=== PATIENT | female | born 1995 ===

== ENCOUNTER 2018-07-12 21:32 | Emergency (ER) | payer MEDICAID ==
[2018-07-12 21:46] VITALS: RESP 18
[2018-07-12] MEDS ORDERED: Sodium Chloride 0.9% 1,000 ML IV STA (21:55)
[2018-07-12 22:30] LABS: SQUAMOUS EPITHIAL 12 /hpf (0-5); URINE BACTERIA RARE (<OCC); URINE BILIRUBIN NEGATIVE (NEGATIVE); URINE BLOOD SMALL (NEGATIVE); URINE CLARITY CLOUDY (Clear); URINE COLOR YELLOW (YELLOW); URINE GLUCOSE (UA) NEG (NEGATIVE); URINE LEUKOCYTE ESTERASE TRACE Leu/uL (Negative); URINE PROTEIN 30 mg/dL (NEGATIVE)
[2018-07-12 22:38] LABS: ALB/GLOB RATIO 1.4 (1.0-2.1); ALBUMIN 4.2 g/dL (3.5-5.0); ALT/SGPT 16 U/L (9-52); AST/SGOT 17 U/L (14-36); BLOOD UREA NITROGEN 9 mg/dl (7-17); CALCIUM 9.3 mg/dL (8.4-10.2); GFR NON-AFRICAN AMERICAN > 60; LIPASE 101 U/L (23-300)
[2018-07-12 22:54] LABS: BASO % 0.5 % (0.0-2.0); EOS # 0.1 K/uL (0.0-0.7); EOS % 1.4 % (0.0-4.0); HEMOGLOBIN 13.4 g/dL (12.0-16.0); LYMPH % 29.7 % (20.0-40.0); MEAN CELL VOLUME 95.8 fl (81.0-99.0); MEAN CORPUSCULAR HEMOGLOBIN 32.9 pg (27.0-31.0); MEAN CORPUSCULAR HGB CONC 34.3 g/dL (33.0-37.0); MEAN PLATELET VOLUME 9.2 fl (7.2-11.7); MONO # 1.3 K/uL (0.0-0.8); MONO % 19.1 % (0.0-10.0); NEUT # 3.3 K/uL (1.8-7.0); NEUT % 49.3 % (50.0-75.0); RBC 4.07 Mil/uL (3.80-5.20); RED CELL DISTRIBUTION WIDTH 12.4 % (11.5-14.5); WHITE BLOOD COUNT 6.7 K/uL (4.8-10.8)
--- NOTE | 2018-07-12 23:09 | ED PDOC ---
HPI: Abdomen Time Seen by Provider: 07/12/18 21:50 Chief Complaint (Nursing): GI Problem Chief Complaint (Provider): GI Problem History Per: Patient History/Exam Limitations: no limitations Onset/Duration Of Symptoms: Hrs (x 3) Current Symptoms Are (Timing): Still Present Quality Of Discomfort: "Pain" Associated Symptoms: Nausea, Vomiting Additional Complaint(s): 23 year old female presents to the ED for evaluation of nausea and vomiting for the last three hours. Patient reports mild abdominal discomfort for two days. Tonight, she developed severe nausea and vomiting, prompting ED visit. States that she vomited a large amount of non bloody, non bilious vomit and continues to report epigastric pain. Denies fever and diarrhea. PMD: Dr. Aguirre Past Medical History Reviewed: Historical Data, Nursing Documentation, Vital Signs Vital Signs: Last Vital Signs Temp 98.0 F 07/12/18 21:45 Pulse 98 H 07/12/18 21:45 Resp 18 07/12/18 21:45 BP 112/73 07/12/18 21:45 Pulse Ox 100 07/12/18 21:45 - Medical History PMH: No Chronic Diseases - Surgical History Surgical History: No Surg Hx - Family History Family History: States: Unknown Family Hx - Social History Current smoker - smoking cessation education provided: No Alcohol: None Drugs: Denies - Immunization History Hx Tetanus Toxoid Vaccination: No Hx Influenza Vaccination: No Hx Pneumococcal Vaccination: No - Home Medications Home Medications: Ambulatory Orders Medication Instructions Recorded Esomeprazole Magnesium [Nexium] 20 mg PO QAM #14 ecc 07/13/18 Ondansetron ODT [Zofran ODT] 4 mg PO Q6 PRN #8 odt 07/13/18 - Allergies Allergies/Adverse Reactions: Allergies Allergy/AdvReac Type Severity Reaction Status Date / Time No Known Allergies Allergy Verified 07/12/18 21:45 Review of Systems ROS Statement: Except As Marked, All Systems Reviewed And Found Negative Constitutional: Negative for: Fever, Chills Gastrointestinal: Positive for: Nausea, Vomiting, Abdominal Pain (discomfort). Negative for: Diarrhea Physical Exam - Reviewed Nursing Documentation Reviewed: Yes Vital Signs Reviewed: Yes - Physical Exam Appears: Positive for: Uncomfortable Head Exam: Positive for: ATRAUMATIC, NORMAL INSPECTION, NORMOCEPHALIC Skin: Positive for: Normal Color, Warm, Dry. Negative for: Rash Eye Exam: Positive for: EOMI, Normal appearance, PERRL Neck: Positive for: Normal, Painless ROM, Supple Cardiovascular/Chest: Positive for: Regular Rate, Rhythm. Negative for: Murmur Respiratory: Positive for: Normal Breath Sounds. Negative for: Respiratory Distress Gastrointestinal/Abdominal: Positive for: Soft, Tenderness (epigastric tenderness). Negative for: Mass, Guarding, Rebound Back: Positive for: Normal Inspection. Negative for: L CVA Tenderness, R CVA Tenderness Extremity: Positive for: Normal ROM (x 4). Negative for: Deformity Neurological/Psych: Positive for: Awake, Alert, Normal Tone, Oriented. Negative for: Motor/Sensory Deficits - Laboratory Results Result Diagrams: 07/12/18 22:04 07/12/18 22: Lab Results: Total Bilirubin 0.3 mg/dl (0.2-1.3) 07/12/18 22: AST 17 U/L (14-36) 07/12/18 22: ALT 16 U/L (9-52) 07/12/18 22: Alkaline Phosphatase 63 U/L (38-126) 07/12/18 22: Total Protein 7.2 G/DL (6.3-8.2) 07/12/18 22: Albumin 4.2 g/dL (3.5-5.0) 07/12/18 22: Globulin 3.1 gm/dL (2.2-3.9) 07/12/18 22: Albumin/Globulin Ratio 1.4 (1.0-2.1) 07/12/18 22: Lipase 101 U/L (23-300) 07/12/18 22:04 Urine Color Yellow (YELLOW) 07/12/18 22:04 Urine Clarity Cloudy (Clear) 07/12/18 22: Urine pH 5.0 (5.0-8.0) 07/12/18 22: Ur Specific Newborn 1.025 (1.003-1.030) 07/12/18 22: Urine Protein 30 mg/dL (NEGATIVE) 07/12/18 22:04 Urine Glucose (UA) Neg mg/dL (NEGATIVE) 07/12/18 22: Urine Ketones Negative mg/dL (NEGATIVE) 07/12/18 22:04 Urine Blood Small (NEGATIVE) 07/12/18 22:04 Urine Nitrate Negative (NEGATIVE) 07/12/18 22:04 Urine Bilirubin Negative (NEGATIVE) 07/12/18 22:04 Urine Urobilinogen 1.0 mg/dL (0.2-1.0) 07/12/18 22:04 Ur Leukocyte Esterase Trace Funmilayo/uL (Negative) 07/12/18 22:04 Urine RBC (Auto) 7 /hpf (0-3) H 07/12/18 22:04 Urine Microscopic WBC 6 /hpf (0-5) H 07/12/18 22:04 Ur Squamous Epith Cells 12 /hpf (0-5) H 07/12/18 22:04 Urine Bacteria Rare (<OCC) 07/12/18 22:04 - ECG O2 Sat by Pulse Oximetry: 100 (RA) Pulse Ox Interpretation: Normal Medical Decision Making Medical Decision Makin:55 Impression: 23 year old female with epigastric pain, nausea and vomiting Intiial Plan: --CMP --CBC --Lipase --Urine dip --Urine preg --NS IV 1,000 mls --Pepcid 20 mg IVP --Zofran 4 mg IV --UA --Gallbladder US 00:04 US RUQ FINDINGS: LIVER: There is hepatomegaly. The liver measured 17.3 cm in the midclavicular line. There is increased echogenicity noted compatible with steatosis.No mass. GALLBLADDER: The gallbladder was not identified. COMMON BILE DUCT: No dilation. 3.0 mm in transverse caliber. PANCREAS: The visualized pancreas appears within normal limits. The distal pancreas is obscured by bowel gas. RIGHT KIDNEY: Unremarkable. Normal renal contours. No renal mass or calculus. No hydronephrosis. IMPRESSION: 1. Hepatomegaly with steatosis. 2. Gallbladder was not identified. 00:34 Labs reviewed no clinically significant abnormalities. Patient reports marked improvement of symptoms and is stable for discharge. Diagnosis is gastritis. Scribe Attestation: Documented by Keiko Xiong, acting as a scribe forJohn South MD Provider Scribe Attestation: All medical record entries made by the Scribe were at my direction and person ally dictated by me. I have reviewed the chart and agree that the record accurately reflects my personal performance of the history, physical exam, medical decision making, and the department course for this patient. I have also personally directed, reviewed, and agree with the discharge instructions and disposition Disposition - Clinical Impression Clinical Impression: Gastritis - Patient ED Disposition Is Patient to be Admitted: No - Disposition Disposition: Routine/Home Disposition Time: 00:34 Condition: STABLE Additional Instructions: WILLIE WYMAN, thank you for letting us take care of you today. Your provider was John South MD and you were treated for VOMITING;BACK PAIN;HEADACHE. The emergency medical care you received today was directed at your acute symptoms. If you were prescribed any medication, please fill it and take as directed. It may take several days for your symptoms to resolve. Return to the Emergency Department if your symptoms worsen, do not improve, or if you have any other problems. Please contact your doctor or call one of the physicians/clinics you have been referred to that are listed on the Patient Visit Information form that is included in your discharge packet. Bring any paperwork you were given at discharge with you along with any medications you are taking to your follow up visit. Our treatment cannot replace ongoing medical care by a primary care provider outside of the emergency department. Thank you for allowing the [facility] team to be part of your care today. If you had an X-Ray or CT scan: A Radiologist will review the ED reading if any change in treatment is needed we will contact you. If you had a blood, urine, or wound culture: It will take several days for the results, if any change in treatment is needed we will contact you. If you had an STI test: It will take 48 hours for the results. Please call after 1 week if you have not heard back. Prescriptions: Esomeprazole Magnesium [Nexium] 20 mg PO QAM #14 ecc Ondansetron ODT [Zofran ODT] 4 mg PO Q6 PRN #8 odt PRN Reason: Nausea/Vomiting Instructions: Gastritis Forms: [facility] (Portuguese) Print Language: CITIZEN OF [place]
[2018-07-13 00:47] VITALS: BP 108/84; PULSE 72; TEMP 98.2
--- NOTE | 2018-07-13 16:39 | US ---
Date of service: 07/12/2018 HISTORY: Abdominal pain COMPARISON: None. TECHNIQUE: Sonographic evaluation of the right upper quadrant of the abdomen. FINDINGS: LIVER: Measures 17.8 cm in length. Normal echogenicity of the liver parenchyma. There is an approximately 4.6 x 2.6 cm masslike density in the region of the caudate lobe which could represent artifact however the possibility of an underlying hepatic mass should be excluded with follow-up triple phase CT scan of the liver.. No intrahepatic bile duct dilatation. GALLBLADDER: Not visualized COMMON BILE DUCT: Measures 3.0 mm. No stones. No dilatation. PANCREAS: Unremarkable as visualized. No mass. No ductal dilatation. RIGHT KIDNEY: Measures 10.2 x 4.4 x 4.3 cm in length. Normal echogenicity. No calculus, mass, or hydronephrosis. AORTA: No aneurysmal dilatation. IVC: Unremarkable. OTHER FINDINGS: None . IMPRESSION: The gallbladder is not visualized on this study. Clinical correlation recommended. There is an approximately 4.6 x 2.6 cm masslike density in the region of the caudate lobe which could represent artifact however the possibility of an underlying hepatic mass should be excluded with follow-up triple phase CT scan of the liver... Note that this report was placed in [place] review folder for follow up
[2018-07-13 20:05] VITALS: O2SAT 100
== END 2018-07-13 00:51 | disposition home or self-care (01) ==
LOC: H.ER 21:32
DX: K29.70 Gastritis, unspecified, without bleeding (principal)
CPT/HCPCS: 76705; 80053; 81003; 81025; 83690; 85025; 96374; 96375; 99284; J2405; J7030